=== PATIENT | female | born 2000 | race Two or more races ===

== ENCOUNTER 2021-09-01 22:17 | Emergency (ER) | payer OTHER ==
[~2021-09-01] VITALS: Ht 157.5 cm; Wt 110.2 kg
[2021-09-02] MEDS ORDERED: ACETAMINOPHEN650 M2 PO (02:35)
== END 2021-09-02 04:44 | disposition home or self-care (01) ==
LOC: ER 22:17
DX: O20.0 Threatened abortion (principal)

== ENCOUNTER 2021-10-18 22:25 | Emergency (ER) | payer OTHER ==
[~2021-10-18] VITALS: Ht 154.9 cm; Wt 104.8 kg
[~2021-10-18 22:25] MED LIST: ACETAMINOPHEN650 M2 PO
[2021-10-18] MEDS ORDERED: PRENA1 CHEW TA1.4 MG (22:46)
[2021-10-18] MEDS ORDERED: DICLEGIS DR 101 EACH (22:46)
[2021-10-19] MEDS ORDERED: PEPCID AC20 MG PO (04:16)
[2021-10-19] MEDS ORDERED: DUI500 PO (04:16)
[2021-10-19] MEDS ORDERED: ACETAMINOPHEN650 M2 PO (04:16)
[2021-10-19] MEDS ORDERED: ONDANSETRON HCL4 MG PO (04:16)
== END 2021-10-19 04:28 | disposition home or self-care (01) ==
LOC: ER 22:25
DX: O26.892 Other specified pregnancy related conditions, second trimester (principal); Z3A.17 17 weeks gestation of pregnancy; Z91.013 Allergy to seafood; R11.0 Nausea

== ENCOUNTER 2022-03-11 12:26 | Inpatient (IN) | payer OTHER ==
[~2022-03-11] VITALS: Ht 152.4 cm; Wt 111.1 kg
[~2022-03-11 12:26] MED LIST changes: +DICLEGIS DR 101 EACH; +DUI500 PO; +ONDANSETRON HCL4 MG PO; +PEPCID AC20 MG PO; +PRENA1 CHEW TA1.4 MG
[2022-03-11] MEDS ORDERED: FOLIC ACID20 MG PO (15:31)
[2022-03-15] MEDS ORDERED: IBU800 MG PO (09:16)
[2022-03-15] MEDS ORDERED: SIMETHICONE125 M1 PO (09:17)
[2022-03-15] MEDS ORDERED: COLACE100 MG PO (09:17)
== END 2022-03-15 11:55 | disposition home or self-care (01) | DRG 788 ==
LOC: LDR 12:26 → OB/GYN 03-12 14:28
PROVIDERS: ADMIT Obstetrics & Gynecology; ATTEND Obstetrics & Gynecology
PROC: 4A1HXCZ Monitoring of Products of Conception, Cardiac Rate, External Approach (ICD-10-PCS; 2022-03-11)
PROC: 10D00Z1 Extraction of Products of Conception, Low, Open Approach (ICD-10-PCS; principal; 2022-03-12 14:30)
DX: O36.5930 Maternal care for other known or suspected poor fetal growth, third trimester, not applicable or unspecified (principal); O99.820 Streptococcus B carrier state complicating pregnancy; Z3A.37 37 weeks gestation of pregnancy; Z37.0 Single live birth; Z20.822 Contact with and (suspected) exposure to COVID-19